=== PATIENT | male | born 1985 | race Caucasian/White ===

== ENCOUNTER 2018-04-03 18:05 | Emergency (ER) | payer MEDICAID ==
[~2018-04-03 18:05] MED LIST: BUSP5TAB3 PO; CLON-527 PO; CYCL-394 PO; DICY20TA33 PO; GABA-530 PO; HYDR-569 PO; PSEU120T55 PO; VENL150C2 PO
== END 2018-04-03 19:23 | disposition left against medical advice (07) ==
LOC: ER 18:05
DX: R10.9 Unspecified abdominal pain (principal); Z53.21 Procedure and treatment not carried out due to patient leaving prior to being seen by health care provider

== ENCOUNTER 2025-05-17 22:54 | Emergency (ER) | payer MEDICAID, OTHER ==
[~2025-05-17] VITALS: Ht 188 cm; Wt 75.8 kg
[~2025-05-17 22:54] MED LIST changes: +HYDR-4383 PO; -HYDR-569 PO; -VENL150C2 PO; +VENL150C5 PO
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
[2025-05-17 23:22] VITALS: BP 152/94; PULSE 116; RESP 16; TEMP 98.2; O2SAT 97
[2025-05-17] MEDS: ibuprofen tablet 400 MG TABLET PO ONE (23:33)
== END 2025-05-17 23:39 ==
LOC: ER 22:54
DX: S70.11XA Contusion of right thigh, initial encounter (principal); K21.9 Gastro-esophageal reflux disease without esophagitis; F41.9 Anxiety disorder, unspecified; F32.A Depression, unspecified; G89.29 Other chronic pain; Z88.6 Allergy status to analgesic agent; Z87.19 Personal history of other diseases of the digestive system; Z79.899 Other long term (current) drug therapy; X58.XXXA Exposure to other specified factors, initial encounter; Y93.89 Activity, other specified; Y92.89 Other specified places as the place of occurrence of the external cause; Y99.8 Other external cause status
CPT/HCPCS: 99283